=== PATIENT | male | born 1955 | race Caucasian/White ===

== ENCOUNTER 2018-12-28 12:13 | Outpatient (CLI) | payer OTHER ==
--- NOTE | 2018-12-28 13:38 | CT ---
CT CHEST WITHOUT CONTRAST: DATE: 12/28/2018. PROVIDED CLINICAL HISTORY: Pulmonary nodule. FINDINGS: The heart, pericardium, and great vessels are suboptimally evaluated in the absence of IV contrast ma terial. Vascular calcification including coronary calcium is demonstrated. Calcified mediastinal and right hilar lymph nodes are seen. No evidence for thoracic lymph node enla rgement. The nodule described on the recent chest radiograph of 12/09/2018 corresponds to a calcified granuloma. There is patchy ground-glass opacity present within a peribronchovascular distribution involving th e left lower lobe likely reflecting resolving infectious pneumonitis. The lungs appear otherwise jessica ar. There is no evidence for pleural fluid or pneumothorax. The airway appears patent and of normal caliber. The visualized portions of the upper abdomen appear unremarkable. The osseous structures demonstrate no concerning lytic or blastic lesions. IMPRESSION: 1. Chest radiographic nodule corresponds to a calcified granuloma. 2. Patchy ground-glass opacity in the left lower lobe likely reflects resolving infectious pneumonit is. POS: [facility]
== END 2018-12-28 12:14 | disposition home or self-care (01) ==
LOC: NAV CT 12:13
PROVIDERS: ATTEND Internal Medicine
DX: R91.1 Solitary pulmonary nodule (principal); R91.8 Other nonspecific abnormal finding of lung field
CPT/HCPCS: 71250

== ENCOUNTER 2020-06-12 11:07 | Outpatient (CLI) | payer OTHER ==
--- NOTE | 2020-06-12 13:34 | RAD ---
RIGHT FEMUR 4 VIEWS: Date: 06/12/2020 HISTORY: Fracture femur. No comparison. FINDINGS/IMPRESSION: Mild degenerative change at the hip. No acute fracture identified. POS: [facility]
== END 2020-06-12 11:08 | disposition home or self-care (01) ==
LOC: NAV RAD 11:07
PROVIDERS: ATTEND Internal Medicine
DX: M84.453A Pathological fracture, unspecified femur, initial encounter for fracture (principal); M16.11 Unilateral primary osteoarthritis, right hip

== ENCOUNTER 2021-03-24 15:14 | Outpatient (CLI) | payer MEDICARE | END 2021-03-24 15:15 | disposition home or self-care (01) | LOC: NAV CT 15:14 | PROVIDERS: ATTEND Internal Medicine | DX: M54.12 Radiculopathy, cervical region (principal); M19.012 Primary osteoarthritis, left shoulder | CPT/HCPCS: 72125 ==